=== PATIENT | female | born 1950 | race Caucasian/White ===

== ENCOUNTER 2016-09-20 07:54 | Day surgery (SDC) | payer MEDICARE, OTHER ==
--- NOTE | 2016-09-20 09:50 | Operative Note ---
Endoscopy Report Date: 09/20/16 Preoperative diagnosis: Screening Colonoscopy Procedure Type of procedure: Colonoscopy with polypectomy by snare and biopsy Indications: 66-year-old white female. She underwent previous colonoscopy in 1998. She states that her father had polyps but no family history of colon cancer. Personal history of breast cancer. She was sent for colonoscopy. Consent was obtained and patient was taken to same-day surgery endoscopy procedure room. She was positioned in a lateral decubitus position. Adequate intravenous sedation was achieved. Variable stiffness Olympus colonoscope was inserted via the anus. It was advanced to the cecum with some minor difficulty as she had some floppiness and tortuosity of the colon. She had Versed 9 mg and fentanyl 250 g titrated during the duration of the procedure. Ultimately the appendiceal orifice and ileocecal valve were identified. Adjacent to the appendiceal orifice there was a flat irregular polyp removed with hot snare. There was some minor irregularity adjacent to the ileocecal valve, consistent with possible early polyp. This was removed in a piecemeal fashion using cold biopsy forceps and sent as cecal biopsies. Colonoscope was slowly withdrawn through the colon. There is some beginnings a small rare diverticulosis. Within the rectum retroflexion was performed which revealed no evidence of any pathologic internal hemorrhoids. Colonoscope was withdrawn. Findings: Diminutive polyps Very rare beginning diverticulosis Recommendations: Based on histopathology likely plan for repeat colonoscopy in 3 -5 years. If the "cecal biopsies" are adenomatous I would favor repeat colonoscopy in 3 years. at [id number]
[2016-09-20 12:35] VITALS: BP 134/80
== END 2016-09-20 10:22 | disposition home or self-care (01) ==
LOC: SDC 07:54
PROVIDERS: Surgery
PROC: 0DBC8ZX Excision of Ileocecal Valve, Via Natural or Artificial Opening Endoscopic, Diagnostic (ICD-10-PCS; 2016-09-20)
PROC: 0DBE8ZX Excision of Large Intestine, Via Natural or Artificial Opening Endoscopic, Diagnostic (ICD-10-PCS; principal; 2016-09-20 09:00)
DX: Z12.11 Encounter for screening for malignant neoplasm of colon (principal); Z80.3 Family history of malignant neoplasm of breast; K63.5 Polyp of colon; K57.90 Diverticulosis of intestine, part unspecified, without perforation or abscess without bleeding